=== PATIENT | female | born 1990 | race Caucasian/White ===

== ENCOUNTER 2019-07-13 10:23 | Inpatient (IN) | payer MEDICAID, OTHER ==
[~2019-07-13] VITALS: Ht 160 cm; Wt 78.2 kg
[2019-07-16 06:40] VITALS: BP 101/67
== END 2019-07-16 13:00 | disposition home or self-care (01) | DRG 871 ==
LOC: ED 13:34 → EDIP 13:36 → 4NOR 15:00 → DCLOUNGE 07-16 12:50
PROVIDERS: ADMIT Hospitalist; ATTEND Internal Medicine
DX: A41.89 Other specified sepsis (principal); N17.0 Acute kidney failure with tubular necrosis; E87.0 Hyperosmolality and hypernatremia; I31.3 Pericardial effusion (noninflammatory); A04.5 Campylobacter enteritis; E83.39 Other disorders of phosphorus metabolism; E83.42 Hypomagnesemia; E87.6 Hypokalemia; K76.0 Fatty (change of) liver, not elsewhere classified; N83.202 Unspecified ovarian cyst, left side; Z83.3 Family history of diabetes mellitus; Z87.442 Personal history of urinary calculi; Z97.5 Presence of (intrauterine) contraceptive device
CPT/HCPCS: 36415; 74177; 80048; 80053; 81001; 83605; 83690; 83735; 84100; 84439; 84443; 84703; 85025; 85651; 86701; 86702; 87040; 87046; 87077; 87324; 87389; 87427; 89055; 96361; 96365; 96375; G0378; J0456; J0696; J2405; J3480; J7070; Q9967; J2270; J3475; J7030; J7040; J7050; J7120

== ENCOUNTER 2021-02-08 10:57 | Inpatient (IN) | payer OTHER ==
[~2021-02-08] VITALS: Ht 160 cm; Wt 84.0 kg
[~2021-02-08 10:57] MED LIST: ASCO100018 PO; AZIT500T10 PO; BUPIVACAINE/PF 0.25% ONE; CEFD300C37 PO; CHOL200074 PO; CIPR500T87 PO; EPINEPHRINE 1 MG/ML, 1ML ONE; IBUP-1222 PO; IBUP-1223 PO; INTERCEED 3 X 4 INCH DRESSING ONE; NITR100C56 PO; NONE PER PT; None at this time; ONDA4TAB7 PO; OXYC1TAB7 PO; PROGESTERONE PO; PROM25TA10 PO; ZINC50CA PO; [UNRECOGNIZED DRUG - OTHER] PO
[2021-02-08] MEDS ORDERED: CHLORHEXIDINE 15 ML UDC ONE (11:26)
[2021-02-08] MEDS ORDERED: CHLORHEXIDINE 15 ML UDC MM ONE (11:30)
[2021-02-08] MEDS ORDERED: LIDOCAINE-MPF 1%, 2ML ONE (11:38)
[2021-02-08 11:46] LABS: HCG UR SG 1.023 (1.003-1.030)
[2021-02-08] MEDS ORDERED: LIDOCAINE-MPF 1%, 2ML INFIL ONE (12:00)
[2021-02-08] MEDS ORDERED: LACTATED RINGERS 1,000 ML IV SCH (12:00)
[2021-02-08] MEDS ORDERED: FENTANYL PF 250 MCG/5ML ONE ×2 (12:13→14:15)
[2021-02-08] MEDS ORDERED: MIDAZOLAM 1 MG/ML, 2ML ONE (12:13)
[2021-02-08] MEDS ORDERED: HYDROmorphone 1 MG/ML, 1ML INJ IVPush PRN (13:00)
[2021-02-08] MEDS ORDERED: OXYcodone 5 MG/5 ML ORAL.SOL UDC PO PRN (13:00)
[2021-02-08] MEDS ORDERED: LABETALOL 5MG/ML, 20ML IV PRN (13:00)
[2021-02-08] MEDS ORDERED: SCOPOLAMINE 1MG PATCH TD ONE (13:00)
[2021-02-08] MEDS ORDERED: PROMETHAZINE 25 MG/ML, 1ML IVPush PRN (13:00)
[2021-02-08] MEDS ORDERED: ACETAMINOPHEN 325 MG TABLET PO PRN (13:00)
[2021-02-08] MEDS ORDERED: MEPERIDINE/PF 25MG/0.5ML IVPush PRN (13:00)
[2021-02-08] MEDS ORDERED: morphine SULFATE 10 MG/ML, 1ML IVPush PRN (13:00)
[2021-02-08] MEDS ORDERED: HALOPERIDOL 5 MG/ML IV PRN (13:00)
[2021-02-08] MEDS ORDERED: hydrALAzine 20 MG/ML, 1ML IV PRN (13:00)
[2021-02-08] MEDS ORDERED: GLYCOPYRROLATE 0.2MG/1ML, 5ML ONE (13:05)
[2021-02-08] MEDS ORDERED: DEXAMETHASONE 4 MG/ML, 1ML ONE (13:05)
[2021-02-08] MEDS ORDERED: ONDANSETRON 2MG/ML, 2ML ONE (13:05)
[2021-02-08] MEDS ORDERED: ROCURONIUM 10MG/ML,5ML ONE (13:05)
[2021-02-08] MEDS ORDERED: PROPOFOL 10 MG/ML, 20ML ONE (13:05)
[2021-02-08] MEDS ORDERED: NEOSTIGMINE 1 MG/ML, 10ML ONE (13:05)
[2021-02-08] MEDS ORDERED: CEFAZOLIN 1,000 MG ONE (13:05)
[2021-02-08] MEDS ORDERED: KETOROLAC 30 MG/1 ML ONE (14:04)
[2021-02-08] MEDS ORDERED: BUPIVACAINE/PF-EPI 0.25% 1:200K INFIL ONE (14:10)
[2021-02-08] MEDS ORDERED: FENTANYL PF 100 MCG/2ML ONE (16:05)
[2021-02-08] MEDS ORDERED: OXYcodone 5 MG/5 ML ORAL.SOL UDC ONE ×2 (16:05→16:15)
[2021-02-08] MEDS ORDERED: ACETAMINOPHEN 650 MG/20.3 ML UDC ONE ×2 (16:06→16:15)
[2021-02-08] MEDS: FENTANYL PF 100 MCG/2ML IV PRN ×3 (16:07→17:14)
[2021-02-08] MEDS ORDERED: morphine SULFATE 10 MG/ML, 1ML IV PRN (19:00)
[2021-02-08] MEDS ORDERED: IBUPROFEN 600 MG TABLET PO PRN (19:00)
[2021-02-08] MEDS ORDERED: ONDANSETRON 2MG/ML, 2ML IV PRN (19:00)
[2021-02-08] MEDS ORDERED: HOME MEDS MC SCH (19:00)
[2021-02-08 19:09] VITALS: BP 102/57
[2021-02-08] MEDS: OXYcodone/APAP 5/325MG TABLET PO PRN (20:24)
[2021-02-08] MEDS: LACTATED RINGERS 1,000 ML IV SCH (23:53)
[2021-02-08 23:54] VITALS: BP 94/63
[2021-02-09] MEDS: OXYcodone/APAP 5/325MG TABLET PO PRN ×3 (02:57→11:14)
[2021-02-09 03:57] VITALS: BP 92/50
[2021-02-09 06:51] VITALS: BP 89/53
[2021-02-09] MEDS: LACTATED RINGERS 1,000 ML IV SCH (07:42)
[2021-02-09] MEDS ORDERED: CHOLECALCIFEROL 1,000 UNIT TABLET PO SCH (09:00)
[2021-02-09] MEDS ORDERED: ASCORBIC ACID 500 MG TABLET PO SCH (09:00)
[2021-02-09] MEDS ORDERED: ZINC SULFATE 220 MG CAPSULE PO SCH (09:00)
[2021-02-09 12:50] VITALS: BP 87/54
[2021-02-09] MEDS ORDERED: SODIUM CHLORIDE 0.9% 500 ML IV SCH (13:30)
[2021-02-09] MEDS ORDERED: OXYC-302 PO (13:32)
[2021-02-09] MEDS ORDERED: IBUP-1223 PO (13:33)
[2021-02-09 14:21] VITALS: BP 102/56
== END 2021-02-09 15:46 | disposition home or self-care (01) | DRG 743 ==
LOC: OUT 10:57 → 4NE 17:52 → OUT 19:42
PROVIDERS: ADMIT Obstetrics & Gynecology; ATTEND Obstetrics & Gynecology
PROC: 0UT94ZL Resection of Uterus, Supracervical, Percutaneous Endoscopic Approach (ICD-10-PCS; principal; 2021-02-08 13:00)
PROC: 0UT78ZZ Resection of Bilateral Fallopian Tubes, Via Natural or Artificial Opening Endoscopic (ICD-10-PCS; 2021-02-08 13:00)
DX: D25.9 Leiomyoma of uterus, unspecified (principal); N92.0 Excessive and frequent menstruation with regular cycle; N94.6 Dysmenorrhea, unspecified
CPT/HCPCS: 36415; J3490; 81025; 85014; 85018; 88302; 88307; G0378; J0171; J0690; J1100; J1885; J2250; J2405; J2704; J2710; J3010; J7040; J7120